=== PATIENT | female | born 1970 | race Caucasian/White ===

== ENCOUNTER 2019-04-07 16:55 | Emergency (ER) | payer MEDICAID ==
[~2019-04-07] VITALS: Ht 170.2 cm; Wt 90.7 kg
[2019-04-07 17:05] VITALS: BP_SYST 122
--- NOTE | 2019-04-07 17:10 | NUR ---
Patient triaged and placed in waiting room. VSS and patient appears in no acute distress at this time. Accompanied by family, awaiting available bed, and MD notified of need for MSE. Patient reports that she is unable to provide urine sample, stating that she is unable to sit down on toilet.
--- NOTE | 2019-04-07 18:13 | NUR ---
BROUGHT BACK TO BED #6 AND TRIAGED. REPORT GIVEN TO MARISA
--- NOTE | 2019-04-07 18:23 | NUR ---
PATIENT CAME IN COMPLAINING OF PAIN IN BACK THAT STARTED YESTERDAY. PATIENT COMPLAINING OF 10/10 SHARP NON RADIATING PAIN. PATIENT NOT COMPLAINING OF NASUEA, VOMITING, OR SOB. PATIENT STATES SHE TOOK NORCO 10-325 MG FOR PAIN 2 HOURS AGO. PATIENT STATES SHE HAS HISTORY OF BACK PROBLEMS AND USED TO GET EPIDURALS. PATIENT STATES SHE NEVER HAD INJURY. PATIENT ALERT AND ORIENTED X4.
--- NOTE | 2019-04-07 18:37 | NUR ---
DR CROFT AT BEDSIDE FOR EVALUATION
[2019-04-07] MEDS ORDERED: KETOROLAC TROMETHAMINE 30 MG VIAL IVP ONE (18:45)
[2019-04-07] MEDS ORDERED: DIPHENHYDRAMINE INJ 50 MG/ML VIAL IVP ONE (18:45)
[2019-04-07] MEDS ORDERED: MORPHINE 4 MG/ML INJ. SYRINGE IVP ONE (18:45)
--- NOTE | 2019-04-07 18:45 | NUR ---
# 20 gauge angiocath placed to LEFT AC. Use of asceptic technique. Opsite placed over site. Blood return noted. Blood for lab drawn from site. Flushed with 10 cc of normal saline. No evidence of infiltration noted. Patient tolerated well.
--- NOTE | 2019-04-07 19:08 | NUR ---
PATIENT GETTING X RAY IN BED.
--- NOTE | 2019-04-07 19:12 | NUR ---
ENDORSED CARE TO YAKELIN CARTER.
[2019-04-07] MEDS ORDERED: methylPREDNISolone SOD SUCC/PF 62.5 MG/ML VIAL IVP ONE (19:15)
[2019-04-07 19:48] VITALS: BP_SYST 122
--- NOTE | 2019-04-07 19:48 | NUR ---
Patient given written and verbal discharge instructions and verbalizes understanding. ER MD Dr. Bruno discussed with patient the results and treatment provided. Patient in stable condition. ID arm band removed. IV catheter removed intact and dressing applied, no active bleeding. Rx of norco, predisone, and motrin . Patient educated on pain management and to follow up with PMD. Pain Scale 0/10, tolerable for pt. PT able to ambulate with steady gait. Opportunity for questions provided and answered. Medication side effect fact sheet provided.
--- NOTE | 2019-04-07 19:48 | NUR ---
Note undone in EDM - 04/07/19 at 2000 by [email or web address] Patient given written and verbal discharge instructions and verbalizes understanding. ER MD Dr. Bruno discussed with patient the results and treatment provided. Patient in stable condition. ID arm band removed. IV catheter removed intact and dressing applied, no active bleeding. Rx of protonix and zofran given. Patient educated on pain management and to follow up with PMD. Pain Scale 2/10, tolerable for pt. PT able to ambulate with steady gait. Opportunity for questions provided and answered. Medication side effect fact sheet provided.
== END 2019-04-07 19:48 | disposition home or self-care (01) ==
LOC: SED 16:55
DX: G89.29 Other chronic pain (principal); M54.5 Low back pain; R03.0 Elevated blood-pressure reading, without diagnosis of hypertension
CPT/HCPCS: 74018; 81025; 87086; 87186; 96374; 96375; 99284; J1200; J1885; J2270; J2930; 99283